=== PATIENT | female | born 1935 | race Hispanic/Latino ===

== ENCOUNTER 2018-02-13 09:11 | Day surgery (SDC) | payer MEDICARE, BC ==
[2018-02-05 13:46] VITALS: BMI 40.1
[2018-02-13] MEDS ORDERED: Propofol 10 mg/ml Inj (20 ML) ONE (10:27)
[2018-02-13] MEDS ORDERED: Sodium Chloride 0.9% 1,000 ML IV SCH (10:30)
[2018-02-13 11:42] VITALS: O2SAT 97
[2018-02-13 13:49] VITALS: BP 131/66; PULSE 63; RESP 14; TEMP 98.4
== END 2018-02-13 12:30 | disposition home or self-care (01) ==
LOC: ENDO 09:11
PROVIDERS: ATTEND Internal Medicine Gastroenterology
DX: K25.9 Gastric ulcer, unspecified as acute or chronic, without hemorrhage or perforation (principal); R13.10 Dysphagia, unspecified
CPT/HCPCS: 43239; 88305; 88312; 88342; J2704; J7040 ×2

== ENCOUNTER 2018-09-03 10:31 | Day surgery (SDC) | payer MEDICARE, BC ==
[2018-02-05 13:46] VITALS: BMI 40.1
[2018-09-03] MEDS ORDERED: Sodium Chloride 0.9% 1,000 ML IV SCH (14:15)
[2018-09-03 14:52] VITALS: RESP 18
[2018-09-03 15:15] VITALS: BP 151/76; PULSE 63; TEMP 98; O2SAT 96
== END 2018-09-03 13:55 | disposition home or self-care (01) ==
LOC: ENDO 10:31
PROVIDERS: ATTEND Internal Medicine Gastroenterology
DX: Z12.11 Encounter for screening for malignant neoplasm of colon (principal); K55.20 Angiodysplasia of colon without hemorrhage; K63.5 Polyp of colon; D12.8 Benign neoplasm of rectum; K57.30 Diverticulosis of large intestine without perforation or abscess without bleeding; K22.5 Diverticulum of esophagus, acquired; K25.7 Chronic gastric ulcer without hemorrhage or perforation; K29.70 Gastritis, unspecified, without bleeding; K64.8 Other hemorrhoids
CPT/HCPCS: 43235; 45380; 45384; 45385; 88305; J2001; J3010; J7040

== ENCOUNTER 2019-01-01 10:57 | Outpatient (CLI) | payer MEDICARE, BC | END 2019-01-01 10:58 | disposition home or self-care (01) | LOC: RAD 10:57 ==